=== PATIENT | male | born 1975 | race Caucasian/White ===

== ENCOUNTER 2024-10-28 16:58 | Inpatient (IN) ==
--- NOTE | 2024-10-28 17:24 | Emergency Department Note ---
ED Provider Note CHIEF COMPLAINT: [] HISTORY OF PRESENTING ILLNESS: [] REVIEW OF SYSTEMS: See HPI for pertinent positives and pertinent negatives. ALLERGIES: See below MEDICATIONS: See below PAST MEDICAL HISTORY: See below PHYSICAL EXAM: [] DIFFERENTIAL DIAGNOSIS: [] ED COURSE AND MEDICAL DECISION MAKING: HISTORY FROM INDEPENDENT HISTORIAN: [] MEDICATIONS GIVEN: [] MONITOR: Continuous court recording monitor: Order was placed for continuous court recording monitor. Patient was placed on the court recording monitor and continuous pulse ox. Patient was noted to be in normal sinus rhythm at an initial rate of [] bpm per my interpretation. EKG: EKG was interpreted by myself as []. INTERPRETATION OF LABS: I interpreted the labs with full lab results as below in the lab section of this note. Pertinent lab results discussed in the MDM section below. INTERPRETATION OF IMAGING: Imaging studies were interpreted by myself and read by radiology as per the imaging section of this note. EXTERNAL RECORDS REVIEWED: [] CHRONIC MEDICAL/SOCIAL CONDITIONS AFFECTING CARE: [] ESCALATION OF CARE CONSIDERED: [] CONSULTATIONS: [] PROCEDURES: [] MDM SUMMARY: The patient is a pleasant, [] who arrives to the emergency department for evaluation of the above-stated complaint. []. DIAGNOSIS: [] The chart was completed utilizing [employer] Speech voice recognition software. Grammatical errors, random word insertions, pronoun errors, and incomplete sentences are an occasional consequence of this system due to software limitations, ambient noise, and hardware issues. Any formal questions or concerns about the content, text, or information contained within the body of this dictation should be directly addressed to the provider for clarification. TREATMENT PLAN/DISCHARGE INSTRUCTIONS: [] Past Med/Surg History Problem List Osteoarthritis of knees, bilateral Medial meniscus tear Social History Smoking Status: Never smoker Preferred Language: Belgian Feels Safe at Home: Yes Allergies Allergies Allergy/AdvReac Type Severity Reaction Status Date / Time No Known Allergies Allergy Verified 01/13/23 15:22 Results & Data (ED) Vital Signs Vital Signs - 24 hr 10/28/24 17:04 Temperature 36.7 C Temperature Source Temporal Artery Scan Pulse Rate 94 H Respiratory Rate 19 Blood Pressure 138/68 Blood Pressure Mean 91 Pulse Oximetry 95 Oxygen Delivery Method Room Air Sepsis Recent Fever Within 48 Hours No Sepsis New/Unexplained Change in Mental Status N/A Sepsis Action Taken by Nursing No Action Required Discharge Plan Visit Data Chief Complaint: Hypotension Stated Complaint: HYPOTENSION, WEAK ED Provider: Janusz Balderas ED Midlevel Provider: Kary Garcia Forms Stand Alone Forms: [facility], [facility] Referrals Referrals: PCP,NO [Primary Care Provider] -
[2024-10-28] MEDS: SODIUM CHLORIDE 0.9% 1,000 ML IV SCH (17:34)
[2024-10-28 17:37] LABS: Basophils # (auto) 0.04 K/uL (0.00-0.20); Basophils % (auto) 0.3 %; Eosinophils # (auto) 0.13 K/uL (0.00-0.50); Eosinophils % (auto) 0.9 %; Immature Granulocytes # (auto) 0.14 K/uL (0.01-0.20); Lymphocytes % (auto) 13.1 %; Mean Corpuscular Hemoglobin 33.3 pg (25.0-34.0); Mean Corpuscular Hgb Conc 34.2 g/dL (32.0-36.0); Mean Corpuscular Volume 97.4 fL (80.0-100.0); Mean Platelet Volume 10.3 fL (9.4-12.4); Monocytes # (auto) 1.26 K/uL (0.11-0.59); Monocytes % (auto) 9.2 %; Neutrophils % (auto) 75.5 %; Platelet Count 277 K/uL (130-400); RDW Coefficient of Variation 13.2 % (11.5-14.5); White Blood Count 13.77 K/ul (4.8-10.8)
[2024-10-28 17:54] LABS: Albumin Globulin Ratio 1.4 (0.9-2); Albumin Level 3.9 gm/dl (3.4-5.0); BUN Creatinine Ratio 13.6 (10-20); Bilirubin,Total 0.6 mg/dl (0.2-1.0); Calcium 9.9 mg/dl (8.6-10.3); Creatinine Clr Calc Pharmacy 34.8 ml/min; Globulin 2.8 gm/dl (2.5-4.0); Total Protein 6.7 gm/dl (6.0-8.3)
[2024-10-28 18:00] LABS: Troponin I High Sensitivity 6.2 pg/ml (0-20)
[2024-10-28 18:09] LABS: Thyroid Stimulating Hormone 2.316 uIu/ml (0.300-4.500)
--- NOTE | 2024-10-28 18:54 | XRay Report ---
Chest radiograph, one view History: Weakness. Comparison: None. Findings: Evaluation limited secondary to patient body habitus. Retrocardiac structures are obscured. Pulmonary vasculature is prominent. No leda edema. No consolidation or appreciated acute pleural disease. Cardiomediastinal silhouette is otherwise within normal limits. Impression: Limitations as described above. No appreciated acute process. Electronically signed by Erwin Paniagua 10-28-2024 6:54 PM
--- NOTE | 2024-10-28 20:01 | CT Scan Report ---
EXAMINATION: CT of the abdomen and pelvis performed without contrast. TECHNIQUE: Helical CT images from the lung bases through the symphysis pubis were obtained without contrast. Coronal and sagittal reformatted images were generated at a workstation for further assessment. Dose reduction techniques were achieved by using automatic exposure control and/or adjustment of mA and/or kV according to patient size and/or use of iterative reconstruction technique. HISTORY: Abdominal pain. COMPARISON: None. FINDINGS: Patient Services Clerk film demonstrates no acute abnormality. Lung windows demonstrate clear included pulmonary bases. Soft tissue windows demonstrate prominent heart size. At least mild partially included pericardial effusion. Portions of the exam limited secondary to patient body habitus and quite a model. Approximately 1 cm exophytic slightly hyperdense nodule anterior right mid renal pole. Suspect hemorrhagic cyst. Portions of the left abdomen not included on this exam. Question small radiopaque staple line left abdomen small bowel. Appendix not identified with certainty. No secondary findings of appendiceal disease. Included small bowel is otherwise within normal limits. Remaining solid and hollow organs of the abdomen and pelvis are within normal limits. No appreciated free air or free fluid. Bone windows demonstrate mild degenerative changes of the spine. No acute osseous process. IMPRESSION: 1. Limitation secondary to patient body habitus with portions of the left abdomen not included on this exam. 2. Suspect small right renal hemorrhagic cyst. Ultrasound would be helpful for further characterization if indicated. 3. Otherwise no findings to indicate source of patient's symptoms. Please see above for details. Electronically signed by Erwin Paniagua 10-28-2024 8:01 PM
[2024-10-28 21:37] LABS: Appearance Urine Clear (Clear); Bilirubin Urine Negative (Negative); Blood Urine Negative (Negative); Color Urine Yellow; Glucose Urine UA Negative (Negative); Ketones Urine Negative (Negative); Leukocyte Esterase Urine Negative (Negative); Nitrite Urine Negative (Negative); Protein Urine Negative (Negative); Urobilinogen Urine Negative (Negative)
--- NOTE | 2024-10-28 22:00 | History & Physical Report ---
Date of Service October 28, 2024 Assessment & Plan (1) Acute kidney injury: (2) Hypotension: (3) Permanent atrial fibrillation: (4) History of DVT (deep vein thrombosis): (5) History of hemicolectomy: (6) Nontraumatic perforation of large intestine: (7) Morbid obesity: (8) HTN (hypertension): (9) Gout: (10) Headache: (11) AC treated with BiPAP: (12) Chronic kidney disease: (13) Cardiomyopathy: Plan 49yo male with history of LLE DVT in 02/2024 (etiology uncertain), atrial fibrillation, CKD baseline Creatinine 1.7 to 2, cardiomyopathy, morbid obesity, HTN, AC on BIPAP, gout, and prior hemicolectomy at [facility] due to bowel perforation. Patient presents due to hypotension, weakness, dizziness/lightheadedness, and poor appetite along with weight loss. He states that this morning he took his BP at home and it was about 90/60. He had another BP reading at home of 70s systolic. The low BPs have been present for a few weeks. Recently weaned off of clonidine and dose of coreg was cut in half (from 25mg BID --> 12.5mg BID). #JONAS - -fortunately patient was able to pull up his records via the [facility] system; Cr was 1.7 in February 2024 and earlier this month was 2.1 -he presents today with Cr of 4.19 -suspect JONAS is due to ATN in the setting of recent low BPs, multiple medicines that could affect renal function (Entresto, large doses of diuretics, etc.), recent RLE cellulitis, poor PO intake, etc. -u/a is bland thus acute GN essentially ruled out -no recent rash to suggest AIN -FeNa calculated - 1.6% -no obstruction seen on CT a/p today plan: -HOLD Entresto, HOLD torsemide, HOLD spironolactone, REDUCE dose of allopu rinol to 100mg daily -IVF - NS at 100ml/hr -BMP in am -if renal function is not improving with the above measures consider nephrology consult #hypotension - -likely combination of numerous anti-hypertensives, volume contraction, diuretics, poor PO intake, etc. -BPs improved s/p fluid bolus in the ER -will continue IV fluids -hold BP meds as noted above #dizziness - -due to hypotension/orthostasis -should improve with measures as above -no vertigo by history -normal neuro exam today #weight loss - -was 436 pounds in early October; today 417 pounds -some of this could be due to Ozempic use; per pharmacy records has been on such at least since November 2023 -no obvious malignancy on CT a/p today; no large nodule/mass on CXR -can't exclude other underlying pathology (and had unprovoked LLE DVT in 2023) -should have additional outpatient w/u (prostate ca screening, especially with his father's prostate ca history; colonoscopy, etc) #headaches - -present since 2023 -he blames the headaches on Eliquis usage -consider head imaging since the headaches are fairly new-onset #atrial fibrillation - -diagnosed some time in the last 6-8 months when he had a Holter monitor -managed by [facility] Cardiology in [place] -on Eliquis, carvedilol -carvedilol dose reduced from 25mg BID to 12.5mg BID recently due to hypotension -rates largely controlled since arrival to [facility] -recheck echo - last echo was in fall 2023, EF 45-50% #CKD - -baseline Cr ~1.7 to 2 (was 1.7 in 02/2024) -now with JONAS -see above #cardiomyopathy - -2nd to jordan? -underlying CAD? (per the records on his phone has had stress test in the past but no L heart cath) -other cause? -EF 45-50% on echo 2023 via [facility] system -on coreg, Entresto, aldactone, torsemide -obtain repeat echo -cont coreg -hold Entresto/aldactone/torsemide due to JONAS/volume contraction #HTN - -with recent hypotension -clonidine recently weaned off -coreg dose recently reduced by 50% -still was hypotensive despite the above -holding Entresto/aldactone/torsemide -cont coreg #AC on BIPAP - -reports good compliance with his device -he is uncertain of the settings -will order in-house BIPAP #h/o LLE DVT - -02/2024 doppler report - left common femoral vein DVT -technically unprovoked (had had no surgery, illness, prolonged travel, etc prior to the event) -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 -nothing infectious on CT a/p -u/a does not suggest UTI -lyme negative -CXR without pneumonia, normal lung exam, etc. -recent cellulitis resolved -simply repeat CBC in am #DVT proph - -Eliquis 5mg BID History of Present Illness Chief Complaint: low blood pressure, weakness Primary Care Provider: Heron Lee PA-C Pleasant 49yo male with history of LLE DVT in 02/2024 (etiology uncertain), atrial fibrillation, CKD, cardiomyopathy, morbid obesity, HTN, AC on BIPAP, gout, and prior hemicolectomy at [facility] due to bowel perforation. Patient presents due to hypotension, weakness, dizziness/lightheadedness, and poor appetite along with weight loss. He states that this morning he took his BP at home and it was about 90/60. He had another BP reading at home of 70s systolic. The low BPs have been present for a few weeks. Patient has been followed by [facility] Cardiology out of [place] and has been in touch with them via email/patient portal over the last 2 weeks. Due to these low BPs [facility] Cardiology advised weaning off clonidine and reducing his coreg dose from 25mg BID to 12.5mg BID. He reports that the dizziness/lightheadedness has been present for about 1 month. During the last few weeks his appetite has been poor. He has lost about 20 pounds of weight. Denies any dyspnea, [place], chest pain, or abdominal pain. No LE edema. No fevers or chills. Since starting Eliquis last fall he has had persistent frontal headaches. He is compliant with his BIPAP. About 2 weeks ago he was diagnosed with right calf cellulitis by his PCP. A doppler study of the right leg at that time was negative for DVT. He took a 10-day course of doxycycline starting 10/10/24. The right calf is feeling better and is back to normal. Allergies Allergy/AdvReac Type Severity Reaction Status Date / Time Penicillins Allergy Severe FACIAL Verified 10/28/24 18:27 SWELLING Home Medications Medication Instructions Recorded Confirmed Type allopurinol 100 mg tablet 100 mg PO BID 10/28/24 10/28/24 History apixaban 5 mg tablet (Eliquis) 5 mg PO BID 10/28/24 10/28/24 History carvedilol 12.5 mg tablet 12.5 mg PO BID 10/28/24 10/28/24 History ergocalciferol (vitamin D2) 1,250 1,250 mcg PO WK 10/28/24 10/28/24 History mcg (50,000 unit) capsule (Vitamin D2) gabapentin 300 mg capsule 300 mg PO TID 10/28/24 10/28/24 History magnesium oxide 400 mg (241.3 mg 400 mg PO BID 10/28/24 10/28/24 History magnesium) tablet montelukast 10 mg tablet 10 mg PO HS 10/28/24 10/28/24 History pantoprazole 40 mg tablet,delayed 40 mg PO BID 10/28/24 10/28/24 History release sacubitril 49 mg-valsartan 51 mg 1 tab PO BID 10/28/24 10/28/24 History tablet (Entresto) semaglutide 2 mg/dose (8 mg/3 mL) 2 mg subcut WK 10/28/24 10/28/24 History subcutaneous pen injector (Ozempic) spironolactone 25 mg tablet 25 mg PO DAILY 10/28/24 10/28/24 History torsemide 100 mg tablet 100 mg PO DAILY 10/28/24 10/28/24 History Past Med/Surg History Problem List (Updated 10/29/24 @ 04:24 by Tulio Luis MD) Headache Hypotension Acute kidney injury Medical History (Updated 10/29/24 @ 04:24 by Tulio Luis MD) AC treated with BiPAP Chronic kidney disease baseline Cr 1.7 to 2 Cardiomyopathy EF 45-50%, 2023 echo via [facility] system Right-sided sensorineural hearing loss Gout HTN (hypertension) Morbid obesity Nontraumatic perforation of large intestine 03/2017, [facility] [place], s/p hemicolectomy (14" removed); etiology? History of DVT (deep vein thrombosis) 02/2024 - left common femoral vein DVT Permanent atrial fibrillation Osteoarthritis of knees, bilateral Medial meniscus tear Surgical History (Updated 10/29/24 @ 04:14 by Tulio Luis MD) History of tonsillectomy Hx of appendectomy History of hemicolectomy Family History (Updated 10/29/24 @ 04:25 by Tulio Luis MD) Father , age 79 Prostate cancer Pancreatic cancer Social History (Updated 10/29/24 @ 04:26 by Tulio Luis MD) Smoking Status: Never smoker Hx Alcohol Use: No Hx Substance Use: No Preferred Language: Icelandic Communication Ability: Effective Life Sciences Instructor Required: No Beliefs That Will Affect Care: None marital status: Single Current Living Situation: Alone current occupational status: employed current occupation: mason How many Children do You have: 0 Feels Safe at Home: Yes Assistive Devices: None Review of Systems Review of Systems: gen - no fevers, no chills; fatigue, weak; poor appetite x 1 month; +weight loss (20 pounds ?) eyes - no change in vision HENT - no oral lesions, chronic R hearing loss (no change) CV - no chest pain pulm - no dyspnea, [place], or cough GI - no vomiting, no diarrhea, no abdominal pain, no blood in stool - no dysuria musculo - no recent gout attacks endo - denies diabetes skin - no rash neuro - headaches for several months Physical Exam Physical Exam: gen - lying comfortably in bed, NAD, nontoxic, awake/alert eyes - PERRL HENT - TMs clear b/l, nose clear, mouth - dry MM, no lesions neck - no JVD, no lymph nodes, no obvious goiter heart - RRR, s1 s2, no murmur lungs - CTA b/l, no rales or wheeze abd - soft; ND; modest tenderness RUQ; liver edge palpable; no peritoneal signs; large midline scar ext - <1+ edema of shins/feet; pulses b/l feet 2+ skin - no rash; no cellulitis of his right leg neuro - CN 3-12 intact, strength 5/5 x 4 exts; DTRs 2+ b/l upper & lower exts psych - a/o x 3 Results & Data Results & Data Vital Signs (Past 12 Hours) Vital Signs Temp Pulse Pulse Resp BP BP Pulse Ox 10/28/24 21:34 89 10/28/24 20:00 87 18 118/83 97 10/28/24 18:20 84 19 101/54 L 94 10/28/24 17:37 90 10/28/24 17:24 96 10/28/24 17:04 36.7 C 94 H 19 138/68 95 O2 Del Method 10/28/24 21:34 10/28/24 20:00 Room Air 10/28/24 18:20 Room Air 10/28/24 17:37 10/28/24 17:24 Room Air 10/28/24 17:04 Room Air Laboratory Results Laboratory Results - last 24 hr 10/28/24 10/28/24 17:21 21:27 WBC 13.77 H RBC 3.90 L Hgb 13.0 L Hct 38.0 L MCV 97.4 MCH 33.3 MCHC 34.2 RDW Std Deviation 47.0 H RDW Coeff of Veronica 13.2 Plt Count 277 MPV 10.3 Immature Gran % (Auto) 1.0 Neut % (Auto) 75.5 Lymph % (Auto) 13.1 [place] % (Auto) 9.2 Eos % (Auto) 0.9 Baso % (Auto) 0.3 Neut # (Auto) 10.40 H Lymph # (Auto) 1.80 [place] # (Auto) 1.26 H Eos # (Auto) 0.13 Baso # (Auto) 0.04 Immature Gran # (Auto) 0.14 Sodium 135 L Potassium 4.0 Chloride 100 Carbon Dioxide 27 Anion Gap 8 BUN 57 H Creatinine 4.19 H Est Cr Clr Drug Dosing 34.8 eGFR 16.33 BUN/Creatinine Ratio 13.6 Glucose 104 H Calcium 9.9 Magnesium 2.0 Total Bilirubin 0.6 AST 8 L ALT 10 Alkaline Phosphatase 70 Troponin I High Sens 6.2 Total Protein 6.7 Albumin 3.9 Globulin 2.8 Albumin/Globulin Ratio 1.4 TSH 2.316 Urine Color Yellow Urine Appearance Clear Urine pH 6.0 Ur Specific [place] 1.010 Urine Protein Negative Urine Glucose (UA) Negative Urine Ketones Negative Urine Blood Negative Urine Nitrite Negative Urine Bilirubin Negative Urine Urobilinogen Negative Ur Leukocyte Esterase Negative Ur Random Creatinine 106.2 Ur Random Sodium 57 Urine Comment Lyme Disease Screen Negative Diagnostic Findings Chest X-Ray 10/28/24 17:24 Chest radiograph, one view History: Weakness. Comparison: None. Findings: Evaluation limited secondary to patient body habitus. Retrocardiac structures are obscured. Pulmonary vasculature is prominent. No leda edema. No consolidation or appreciated acute pleural disease. Cardiomediastinal silhouette is otherwise within normal limits. Impression: Limitations as described above. No appreciated acute process. Electronically signed by Erwin Paniagua 10-28-2024 6:54 PM Abdomen/Pelvis CT 10/28/24 18:02 EXAMINATION: CT of the abdomen and pelvis performed without contrast. TECHNIQUE: Helical CT images from the lung bases through the symphysis pubis were obtained without contrast. Coronal and sagittal reformatted images were generated at a workstation for further assessment. Dose reduction techniques were achieved by using automatic exposure control and/or adjustment of mA and/or kV according to patient size and/or use of iterative reconstruction technique. HISTORY: Abdominal pain. COMPARISON: None. FINDINGS: Police Chief Deputy film demonstrates no acute abnormality. Lung windows demonstrate clear included pulmonary bases. Soft tissue windows demonstrate prominent heart size. At least mild partially included pericardial effusion. Portions of the exam limited secondary to patient body habitus and quite a model. Approximately 1 cm exophytic slightly hyperdense nodule anterior right mid renal pole. Suspect hemorrhagic cyst. Portions of the left abdomen not included on this exam. Question small radiopaque staple line left abdomen small bowel. Appendix not identified with certainty. No secondary findings of appendiceal disease. Included small bowel is otherwise within normal limits. Remaining solid and hollow organs of the abdomen and pelvis are within normal limits. No appreciated free air or free fluid. Bone windows demonstrate mild degenerative changes of the spine. No acute osseous process. IMPRESSION: 1. Limitation secondary to patient body habitus with portions of the left abdomen not included on this exam. 2. Suspect small right renal hemorrhagic cyst. Ultrasound would be helpful for further characterization if indicated. 3. Otherwise no findings to indicate source of patient's symptoms. Please see above for details. Electronically signed by Erwin Paniagua 10-28-2024 8:01 PM EKG - my reading - a.fib, rate 100-105, Q's anteroseptal leads, poor R wave progression, no ST changes Code Status & VTE Plan Code Status full code PG Care Time/CCT Total # of Minutes Spent Total Time Spent with Patient: Total time spent is greater than 50% in coordination of care (as documented) at patient's floor/unit and/or counseling patient: Coding Level of Care Code 01173 INT INP/OBS CARE MIN Diagnoses Acute kidney injury N17.9 Hypotension I95.9 Permanent atrial fibrillation I48.21 History of DVT (deep vein thrombosis) Z86.718 History of hemicolectomy Z90.49 Nontraumatic perforation of large intestine K63.1 Morbid obesity E66.01 HTN (hypertension) I10 Gout M10.9 Headache R51.9 AC treated with BiPAP G47.33 Chronic kidney disease N18.9 Cardiomyopathy I42.9
[2024-10-28 22:12] LABS: Creatinine Urine Random 106.2 mg/dl
[2024-10-29] MEDS ORDERED: MELATONIN 3 MG TAB PO PRN (01:12)
[2024-10-29] MEDS ORDERED: ACETAMINOPHEN 325 MG TAB PO PRN (01:12)
[2024-10-29] MEDS ORDERED: ONDANSETRON INJ 2 MG/ML 2 ML VIAL IV PRN (01:12)
[2024-10-29] MEDS: SODIUM CHLORIDE 0.9% 1,000 ML IV ONE (03:36)
[2024-10-29 05:47] LABS: Hematocrit (blood only) 34.6 % (42.0-52.0); Hemoglobin 11.4 g/dl (14.0-18.0); Mean Corpuscular Hemoglobin 33.3 pg (25.0-34.0); Mean Corpuscular Hgb Conc 32.9 g/dL (32.0-36.0); Mean Corpuscular Volume 101.2 fL (80.0-100.0); Mean Platelet Volume 10.3 fL (9.4-12.4); Platelet Count 211 K/uL (130-400); RDW Coefficient of Variation 13.1 % (11.5-14.5); RDW Standard Deviation 48.5 fL (36.4-46.3); Red Blood Count 3.42 M/uL (4.70-6.10); White Blood Count 10.64 K/ul (4.8-10.8)
[2024-10-29 06:06] LABS: Calcium 8.9 mg/dl (8.6-10.3); Creatinine Clr Calc Pharmacy 42.5 ml/min
[2024-10-29 06:24] LABS: Ferritin 327.9 ng/ml (8-388)
[2024-10-29] MEDS: SODIUM CHLORIDE 0.9% 1,000 ML IV SCH (06:29)
[2024-10-29 06:30] LABS: Folate (Folic Acid),Ser orPlas 5.08 ng/ml (>5.38)
[2024-10-29] MEDS: APIXABAN 5 MG TABLET PO SCH (08:32)
[2024-10-29] MEDS: allopurinoL 100 MG TAB PO SCH (08:32)
[2024-10-29] MEDS: GABAPENTIN 300 MG CAP PO SCH (08:32)
[2024-10-29] MEDS: PANTOprazole 40 MG TAB PO SCH (08:32)
[2024-10-29] MEDS: carvediloL 12.5 MG TAB PO SCH (08:32)
--- NOTE | 2024-10-29 10:18 | Ultrasound Report ---
RENAL ULTRASOUND HISTORY: evaluate renal cyst COMPARISON: CT yesterday FINDINGS: Right kidney measures 12 x 6 cm. There is no hydronephrosis. There are a few small right re nal cysts, largest measuring 1.1 cm, correlates with the midpole finding on the prior CT. Left kidney measures 13 x 7 cm. There is no hydronephrosis. There are a few cysts at the left kidney, largest measuring 2 cm. There is a possible tiny calculus mid left kidney. There is mild renal cortical thinning and echogenicity which can be seen with chronic renal disease. Urinary bladder is nondistended, grossly unremarkable. IMPRESSION: 1. Bilateral renal cysts. No suspicious renal lesions seen. 2. Otherwise as described. ACT 112: Negative or not required by law. Electronically signed by: Gabe Lea M.D. 10/29/2024 10:17 AM
--- NOTE | 2024-10-29 10:56 | Hospitalist Progress Note ---
Date of Service October 29, 2024 Assessment & Plan (1) Acute kidney injury: (2) Hypotension: (3) Permanent atrial fibrillation: (4) History of DVT (deep vein thrombosis): (5) History of hemicolectomy: (6) Nontraumatic perforation of large intestine: (7) Morbid obesity: (8) HTN (hypertension): (9) Gout: (10) Headache: (11) AC treated with BiPAP: (12) Chronic kidney disease: (13) Cardiomyopathy: Plan This is a 49yo male with history of LLE DVT in 02/2024 (etiology uncertain), atrial fibrillation, CKD baseline Creatinine 1.7 to 2, cardiomyopathy, morbid obesity, HTN, AC on BIPAP, gout, and prior hemicolectomy at [facility] due to bowel perforation. Patient presents due to hypotension, weakness, dizziness/lightheadedness, and poor appetite along with weight loss. He states that this morning he took his BP at home and it was about 90/60. He had another BP reading at home of 70s systolic. The low BPs have been present for a few weeks. Recently weaned off of clonidine and dose of coreg was cut in half (from 25mg BID --> 12.5mg BID). #hypotension - -likely combination of numerous anti-hypertensives, volume contraction, diuretics, poor PO intake, etc. -Now resolved after fluid resuscitation -hold BP meds as noted above #JONAS - -Likely pre renal -Cr was 1.7 in February 2024 and earlier this month was 2.1 per records from [facility] - Cr of 4.19 on admission -no obstruction seen on CT a/p -Slight improvement following IV fluids. Today, 3.49 -suspect JONAS is due to ATN in the setting of recent low BPs, multiple medicines that could affect renal function (Entresto, large doses of diuretics, etc.), -Continue to hold Entresto, Torsemide continue IV fluids #dizziness - -due to hypotension/orthostasis -should improve with measures as above -no vertigo by history -normal neuro exam today #weight loss - -was 436 pounds in early October; today 417 pounds -some of this could be due to Ozempic use; per pharmacy records has been on such at least since November 2023 -no obvious malignancy on CT a/p today; no large nodule/mass on CXR -can't exclude other underlying pathology (and had unprovoked LLE DVT in 2023) -should have additional outpatient w/u (prostate ca screening, especially with his father's prostate ca history; colonoscopy, etc) #headaches - -present since 2023 -he blames the headaches on Eliquis usage -consider head imaging since the headaches are fairly new-onset #atrial fibrillation - -diagnosed some time in the last 6-8 months when he had a Holter monitor -managed by [facility] in [place] -on Eliquis, carvedilol -carvedilol dose reduced from 25mg BID to 12.5mg BID recently due to hypotension -rates largely controlled since arrival to [facility] -recheck echo - last echo was in fall 2023, EF 45-50% #CKD - -baseline Cr ~1.7 to 2 (was 1.7 in 02/2024) -now with JONAS -see above #cardiomyopathy - -2nd to a.fib? -underlying CAD? (per the records on his phone has had stress test in the past but no L heart cath) -other cause? -EF 45-50% on echo 2023 via [facility] system -on coreg, Entresto, aldactone, torsemide -obtain repeat echo -cont coreg -hold Entresto/aldactone/torsemide due to JONAS/volume contraction #HTN - -with recent hypotension -clonidine recently weaned off -coreg dose recently reduced by 50% -still was hypotensive despite the above -holding Entresto/aldactone/torsemide -cont coreg #AC on BIPAP - -reports good compliance with his device -he is uncertain of the settings -will order in-house BIPAP #h/o LLE DVT - -02/2024 doppler report - left common femoral vein DVT -technically unprovoked (had had no surgery, illness, prolonged travel, etc prior to the event) -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 HEENT--PERRL, EOMI, mucous membranes and oropharynx mildly dry Neck--supple. No JVD. No bruits. Thyroid normal, trachea midline, no adenopathy. Heart--normal S1 and S2. No murmurs, rubs or gallops. Lungs--clear bilaterally, no respiratory distress, no accessory muscle use. Abdomen--normal bowel sounds and soft. Extremities--no cyanosis or clubbing. No edema. Dermatologic--normal skin turgor, normal color, no abnormal lymph nodes, no rash. Neurologic--cranial nerves II through XII grossly intact. Rheumatologic--normal range of motion. Psychiatric--normal affect. Results & Data Results & Data Vital Signs (Past 12 Hours) Vital Signs Temp Pulse Pulse Resp BP BP Pulse Ox 10/29/24 10:43 97.9 F 85 18 133/90 95 10/29/24 07:59 97.9 F 90 18 100/66 95 10/29/24 07:23 83 10/29/24 03:51 137/87 10/29/24 03:11 97.9 F 86 20 77/51 L 92 10/29/24 02:10 90 20 93 10/29/24 01:35 10/29/24 01:20 88 10/29/24 00:45 97.9 F 86 20 112/75 96 10/29/24 00:27 97.7 F 91 H 18 137/94 95 10/29/24 00:00 98.1 F 90 18 137/94 96 O2 Del Method FiO2 10/29/24 10:43 Room Air 10/29/24 07:59 Room Air 10/29/24 07:23 10/29/24 03:51 10/29/24 03:11 BiPAP 10/29/24 02:10 21 10/29/24 01:35 Room Air, BiPAP 10/29/24 01:20 10/29/24 00:45 Room Air, BiPAP 10/29/24 00:27 Room Air 10/29/24 00:00 Room Air PG Care Time/CCT Total # of Minutes Spent Total Time Spent with Patient: Total time spent is greater than 50% in coordination of care (as documented) at patient's floor/unit and/or counseling patient: Coding Level of Care Code 44559 SUB INP/OBS CARE 2/35MIN Diagnoses Acute kidney injury N17.9 Hypotension I95.9 Permanent atrial fibrillation I48.21 History of DVT (deep vein thrombosis) Z86.718 History of hemicolectomy Z90.49 Nontraumatic perforation of large intestine K63.1 Morbid obesity E66.01 HTN (hypertension) I10 Gout M10.9 Headache R51.9 AC treated with BiPAP G47.33 Chronic kidney disease N18.9 Cardiomyopathy I42.9 Time Spent (min) 35
[2024-10-29] MEDS: MONTELUKAST SODIUM 10 MG TABLET PO SCH (20:42)
[2024-10-30 07:27] LABS: Hemoglobin 11.2 g/dl (14.0-18.0); Mean Corpuscular Hemoglobin 33.3 pg (25.0-34.0); Mean Corpuscular Hgb Conc 32.9 g/dL (32.0-36.0); Mean Corpuscular Volume 101.2 fL (80.0-100.0); Mean Platelet Volume 9.8 fL (9.4-12.4); Platelet Count 203 K/uL (130-400); RDW Coefficient of Variation 13.1 % (11.5-14.5); RDW Standard Deviation 48.7 fL (36.4-46.3); Red Blood Count 3.36 M/uL (4.70-6.10); White Blood Count 8.62 K/ul (4.8-10.8)
[2024-10-30 07:44] LABS: Creatinine Clr Calc Pharmacy 54.1 ml/min; Potassium 4.5 mmol/L (3.5-5.1)
[2024-10-30 07:51] VITALS: BP 126/86; RESP 20; TEMP 98.2; O2SAT 94
--- NOTE | 2024-10-30 11:27 | Discharge Summary ---
Date of Service October 30, 2024 Admission HPI Per Admitting Provider Pleasant 49yo male with history of LLE DVT in 02/2024 (etiology uncertain), atrial fibrillation, CKD, cardiomyopathy, morbid obesity, HTN, AC on BIPAP, gout, and prior hemicolectomy at [facility] due to bowel perforation. Patient presents due to hypotension, weakness, dizziness/lightheadedness, and poor appetite along with weight loss. He states that this morning he took his BP at home and it was about 90/60. He had another BP reading at home of 70s systolic. The low BPs have been present for a few weeks. Patient has been followed by [facility] out of [place] and has been in touch with them via email/patient portal over the last 2 weeks. Due to these low BPs [facility] advised weaning off clonidine and reducing his coreg dose from 25mg BID to 12.5mg BID. He reports that the dizziness/lightheadedness has been present for about 1 month. During the last few weeks his appetite has been poor. He has lost about 20 pounds of weight. Denies any dyspnea, [place], chest pain, or abdominal pain. No LE edema. No fevers or chills. Since starting Eliquis last fall he has had persistent frontal headaches. He is compliant with his BIPAP. About 2 weeks ago he was diagnosed with right calf cellulitis by his PCP. A doppler study of the right leg at that time was negative for DVT. He took a 10-day course of doxycycline starting 10/10/24. The right calf is feeling better and is back to normal. Admission Exam (Per Admitting) Constitutional The patient is awake, alert and oriented 3, well developed and well nourished, normocephalic and atraumatic, lying in bed and in no acute distress. HEENT--PERRL, EOMI, mucous membranes and oropharynx mildly dry Neck--supple. No JVD. No bruits. Thyroid normal, trachea midline, no adenopathy. Heart--normal S1 and S2. No murmurs, rubs or gallops. Lungs--clear bilaterally, no respiratory distress, no accessory muscle use. Abdomen--normal bowel sounds and soft. Extremities--no cyanosis or clubbing. No edema. Dermatologic--normal skin turgor, normal color, no abnormal lymph nodes, no rash. Neurologic--cranial nerves II through XII grossly intact. Rheumatologic--normal range of motion. Psychiatric--normal affect. Discharge Data Consultations 10/28/24 20:08 ED Decision to Admit Stat Hospital Course (1) Acute kidney injury: (2) Hypotension: (3) Permanent atrial fibrillation: (4) History of DVT (deep vein thrombosis): (5) History of hemicolectomy: (6) Nontraumatic perforation of large intestine: (7) Morbid obesity: (8) HTN (hypertension): (9) Gout: (10) Headache: (11) AC treated with BiPAP: (12) Chronic kidney disease: (13) Cardiomyopathy: Plan This is a 49yo male with history of LLE DVT in 02/2024 (etiology uncertain), atrial fibrillation, CKD baseline Creatinine 1.7 to 2, cardiomyopathy, morbid obesity, HTN, AC on BIPAP, gout, and prior hemicolectomy at [facility] due to bowel perforation. Patient presents due to hypotension, weakness, dizziness/lightheadedness, and poor appetite along with weight loss. He states that this morning he took his BP at home and it was about 90/60. He had another BP reading at home of 70s systolic. The low BPs have been present for a few weeks. Recently weaned off of clonidine and dose of coreg was cut in half (from 25mg BID --> 12.5mg BID). #hypotension - -likely combination of numerous anti-hypertensives, volume contraction, diuretics, poor PO intake, etc. -Now resolved after fluid resuscitation #JONAS - --no obstruction seen on CT a/p -Likely pre renal, renal function contiues to improve after fluids Will hold his Entresto and Spironolactone for 4 days following discharge follow up with PCP #dizziness - -due to hypotension/orthostasis -should improve with measures as above -no vertigo by history -normal neuro exam today #weight loss - -was 436 pounds in early October; today 417 pounds -some of this could be due to Ozempic use; per pharmacy records has been on such at least since November 2023 -no obvious malignancy on CT a/p today; no large nodule/mass on CXR -can't exclude other underlying pathology (and had unprovoked LLE DVT in 2023) -should have additional outpatient w/u (prostate ca screening, especially with his father's prostate ca history; colonoscopy, etc) #headaches - -present since 2023 -he blames the headaches on Eliquis usage -consider head imaging since the headaches are fairly new-onset #atrial fibrillation - -diagnosed some time in the last 6-8 months when he had a Holter monitor -managed by [facility] in [place] -on Eliquis, carvedilol -carvedilol dose reduced from 25mg BID to 12.5mg BID recently due to hypotension -rates largely controlled since arrival to [facility] -recheck echo - last echo was in fall 2023, EF 45-50% #CKD - -baseline Cr ~1.7 to 2 (was 1.7 in 02/2024) -now with JONAS -see above #cardiomyopathy - -2nd to a.fib? -underlying CAD? (per the records on his phone has had stress test in the past but no L heart cath) -other cause? -EF 45-50% on echo 2023 via [facility] system -on coreg, Entresto, aldactone, torsemide -obtain repeat echo -cont coreg -hold Entresto/aldactone/torsemide due to JONAS/volume contraction #HTN - -with recent hypotension -clonidine recently weaned off -coreg dose recently reduced by 50% -still was hypotensive despite the above -holding Entresto/aldactone/torsemide -cont coreg #AC on BIPAP - -reports good compliance with his device -he is uncertain of the settings -will order in-house BIPAP #h/o LLE DVT - -02/2024 doppler report - left common femoral vein DVT -technically unprovoked (had had no surgery, illness, prolonged travel, etc prior to the event) -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 but even so 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 -remains on Eliquis 5mg BID #morbid obesity BMI 53 #gout - -cont allopurinol but given his JONAS will reduce dose to 100mg daily #anemia - -check Fe studies, B12, folate in am #DVT proph - -Eliquis 5mg BID disposition : discharge home Coding Level of Care Code 07938 INP/OBS DISCH >30 MIN Diagnoses Acute kidney injury N17.9 Hypotension I95.9 Permanent atrial fibrillation I48.21 History of DVT (deep vein thrombosis) Z86.718 History of hemicolectomy Z90.49 Nontraumatic perforation of large intestine K63.1 Morbid obesity E66.01 HTN (hypertension) I10 Gout M10.9 Headache R51.9 AC treated with BiPAP G47.33 Chronic kidney disease N18.9 Cardiomyopathy I42.9 Time Spent (min) 35
[2024-10-30 12:03] VITALS: PULSE 93
--- NOTE | 2024-10-30 17:04 | XCELERA ---
[id number]
--- NOTE | 2024-10-31 15:29 | Electrocardiogram Report ---
Test Reason : Blood Pressure : */* mmHG Vent. Rate : 105 BPM Atrial Rate : * BPM P-R Int : * ms QRS Dur : 84 ms QT Int : 352 ms P-R-T Axes : * -20 48 degrees QTcB Int : 465 ms Atrial fibrillation with rapid ventricular response Low voltage QRS Inferior infarct , age undetermined Possible Anterolateral infarct , age undetermined Abnormal ECG No previous ECGs available Confirmed by Nelson Villalobos ([id number]) on 10/31/2024 3:28:44 PM Referred By: REFERRED SELF Confirmed By: Nelson Villlaobos
== END 2024-10-30 14:11 | disposition home or self-care (01) | DRG 683 ==
LOC: ED 16:58 → 2E 10-29 00:27 → SUATTDRO 10-29 00:51